=== PATIENT | male | born 1980 ===

== ENCOUNTER 2018-08-13 09:33 | Day surgery (SDC) | payer MEDICAID ==
[~2018-08-13 09:33] MED LIST: Lidocaine 2% w Epi 1:100,000 Inj IJ ONE; Tetracaine 0.5% Ophth (OR ONLY) ONE
[2018-08-13 09:53] VITALS: BMI 30.2
[2018-08-13 14:26] VITALS: TEMP 97.8
[2018-08-13 14:27] VITALS: BP 122/65; PULSE 69; RESP 18; O2SAT 100
--- NOTE | 2018-08-14 08:14 | OP ---
PROCEDURE DATE: 08/13/2018 PREOPERATIVE DIAGNOSIS: Chalazion of the right upper lid. POSTOPERATIVE DIAGNOSIS: Chalazion of the right upper lid. PROCEDURE: Excision of chalazion, right upper lid. ANESTHESIA: Local. COMPLICATIONS: None. DESCRIPTION OF PROCEDURE: Operative report is as follows: The patient was prepped and draped in the usual sterile fashion for surgery of the right upper eyelid. Approximately 2 to 3 mL of 2% lidocaine with epinephrine was injected peribulbar superiorly of the upper lid. A chalazion clamp was then placed over the chalazion, and the right upper lid was everted. A blade was then used to perform a cruciate incision into the chalazion, and a curette was used to remove all the contents of the chalazion, which were wiped away with cotton tips. A Amy scissor and 0.3 forceps were used to dissect the actual chalazion capsule from the surrounding normal lid structures. At the conclusion, the lid speculum was removed. Pressure was placed onto the surgical area for great hemostasis. TobraDex ointment was placed into the eye, and a pressure patch was placed over the eye, and the patient was taken from operating room in excellent condition. Adrián Haney MD
== END 2018-08-13 14:20 | disposition home or self-care (01) ==
LOC: C.SDS 09:33
PROVIDERS: ATTEND Ophthalmology
DX: H00.11 Chalazion right upper eyelid (principal)